=== PATIENT | male | born 1990 | race African-American/Black ===

== ENCOUNTER 2017-10-19 16:17 | Emergency (ER) | payer BC ==
[~2017-10-19] VITALS: Ht 175.3 cm; Wt 81.8 kg
[2017-10-19 16:42] VITALS: TEMP 37.1; Ht 175.3 cm; Wt 81.8 kg
[2017-10-19] MEDS ORDERED: OPTIRAY 320 IV PRN (17:00)
[2017-10-19] MEDS ORDERED: PATIENT'S ALLERGY INFO NEEDS ENTERED SCH (17:15)
[2017-10-19] MEDS ORDERED: LISI-461 PO (17:16)
[2017-10-19] MEDS ORDERED: TACR5CAP5 PO (17:16)
[2017-10-19] MEDS ORDERED: MYCO500T4 PO (17:16)
--- NOTE | 2017-10-19 18:09 | EMERGENCY ROOM VISIT NOTE ---
History First contact with patient: 16:51 Chief Complaint: BACK PAIN Stated Complaint: PAINFUL LOWER BACK PAIN, POSSIBLY ABSCESS History of Present Illness The patient is a 26 year old male who presents to the Emergency Room via private vehicle with complaints of "painful lower back, possibly abscess ankle. The patient states that for the past 2 days he has had pain in the perirectal region favoring the right side and posteriorly. He notes a history of 2. Rectal abscesses this past year alone. He denies any chest pain or shortness of breath. There are no fevers. Review of Systems A complete 6-point Review of Systems was discussed with the patient, with pertinent positives and negatives listed in the History of Present Illness. All remaining Review of Systems questions can be considered negative unless otherwise specified. Past Medical/Surgical History Kidney transplant and perirectal abscess. Family History Noncontributory Social History Smoking Status: Never Smoker Patient is from [facility], and is a traveling medical doctor md. Current/Historical Medications Scheduled Amoxicillin (Amoxicillin), 500 MG PO TID Lisinopril (Zestril), 10 MG PO DAILY Metronidazole (Flagyl), 500 MG PO TID Mycophenolate Mofetil (Cellcept), 250 MG PO BID Tacrolimus (Prograf), 5 MG PO BID Scheduled PRN Oxycodone Ir (Roxicodone Ir), 1-2 TAB PO Q4H PRN for Pain Physical Exam Vital Signs Date Time Temp Pulse Resp B/P (MAP) Pulse Ox O2 Delivery O2 Flow Rate FiO2 10/19/17 19:18 88 16 204/131 97 Room Air 10/19/17 18:39 72 16 172/129 98 Room Air 10/19/17 16:42 37.1 102 20 196/103 98 Room Air Physical Exam VITAL SIGNS - Vital signs and nursing notes were reviewed. Stable. Afebrile. Hypertensive. GENERAL -26-year-old male appearing his stated age who is in no acute distress. He is standing upon my entrance into the exam room, noting it is very painful to sit. Communicates well with provider and answers questions appropriately. SKIN - Without rashes. With patient prone, at the 2 o'clock position there is a 2 7 m x 2 cm slightly erythematous region that is borderline in the right anal verge. There is tenderness in this region and the rectal region. No drainage. No fluctuance. Medical Decision & Procedures ER Provider Diagnostic Interpretation: PELVIS NO IV/ORAL CONT (CT) CLINICAL HISTORY: Perianal abscess TECHNIQUE: Transaxial acquisition of multi axial reformatted images COMPARISON STUDY: None FINDINGS: All major intrapelvic structures are unremarkable. Bladder is midline. Right kidney is low-lying and/or pelvic in location. No evidence for collection or obstructive change within the soft tissue pelvis. Mild circumferential wall thickening of the anal verge somewhat more prominent on the right. A well-defined abscess or collection is not appreciated. Density characteristics of the subcutaneous fat and perirectal fascial planes is unremarkable. IMPRESSION: Mild circumferential wall thickening of the liver is slightly more prominent on the right. 2. No evidence for abscess or collection. 3. 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 The above report was generated using voice recognition software. It may contain grammatical, syntax or spelling errors. Electronically signed by: Ortega Del Rosario M.D. 10/19/2017 6:06 PM Dictated Date/Time: 10/19/2017 6:00 PM Laboratory Results 10/19/17 17:41 Red Blood Count 4.65, Mean Corpuscular Volume 87.5, Mean Corpuscular Hemoglobin 29.5, Mean Corpuscular Hemoglobin Concent 33.7, Mean Platelet Volume 10.5, Neutrophils (%) (Auto) 71.9, Lymphocytes (%) (Auto) 22.0, Monocytes (%) (Auto) 5.1, Eosinophils (%) (Auto) 0.4, Basophils (%) (Auto) 0.1, Neutrophils # (Auto) 8.14, Lymphocytes # (Auto) 2.49, Monocytes # (Auto) 0.58, Eosinophils # (Auto) 0.04, Basophils # (Auto) 0.01 10/19/17 17:41 Test 10/19/17 17:41 White Blood Count 11.32 K/uL (4.8-10.8) Red Blood Count 4.65 M/uL (4.7-6.1) Hemoglobin 13.7 g/dL (14.0-18.0) Hematocrit 40.7 % (42-52) Mean Corpuscular Volume 87.5 fL (80-100) Mean Corpuscular Hemoglobin 29.5 pg (25-34) Mean Corpuscular Hemoglobin Concent 33.7 g/dl (32-36) Platelet Count 285 K/uL (130-400) Mean Platelet Volume 10.5 fL (7.4-10.4) Neutrophils (%) (Auto) 71.9 % Lymphocytes (%) (Auto) 22.0 % Monocytes (%) (Auto) 5.1 % Eosinophils (%) (Auto) 0.4 % Basophils (%) (Auto) 0.1 % Neutrophils # (Auto) 8.14 K/uL (1.4-6.5) Lymphocytes # (Auto) 2.49 K/uL (1.2-3.4) Monocytes # (Auto) 0.58 K/uL (0.11-0.59) Eosinophils # (Auto) 0.04 K/uL (0-0.5) Basophils # (Auto) 0.01 K/uL (0-0.2) RDW Standard Deviation 39.7 fL (36.4-46.3) RDW Coefficient of Variation 12.5 % (11.5-14.5) Immature Granulocyte % (Auto) 0.5 % Immature Granulocyte # (Auto) 0.06 K/uL (0.00-0.02) Anion Gap 7.0 mmol/L (3-11) Est Creatinine Clear Calc Drug Dose 75.7 ml/min Estimated GFR () 74.6 Estimated GFR (Non- 64.4 BUN/Creatinine Ratio 12.0 (10-20) Calcium Level 9.6 mg/dl (8.5-10.1) Chemistry Specimen Hemolysis Medications Administered Medications (Trade) Dose Ordered Sig/Gen Route Start Time Stop Time Status Last Admin Dose Admin Miscellaneous Information (Patient'S Allergy Info Needs Entered) 1 ea Q15M N/A 10/19/17 17:15 10/19/17 17:37 DC 10/19/17 17:15 1 EA Oxycodone HCl (Roxicodone Immediate Rel 5MG Home Pack) 1 homepack UD STAT PO 10/19/17 19:19 10/19/17 19:21 DC 10/19/17 19:19 1 HOMEPACK Metronidazole (Flagyl Tab) 1,500 mg NOW STAT PO 10/19/17 19:19 10/19/17 19:21 DC 10/19/17 19:19 1,500 MG Amoxicillin (Amoxil 250MG Home Pack) 1 homepack UD STAT PO 10/19/17 19:19 10/19/17 19:21 DC 10/19/17 19:19 1 [facility] Medical Decision Patient was seen and evaluated as above. He presents to us today with rectal pain. There is evidence of perianal cellulitis, possibly developing an abscess. This is his third one of the year. Decision was made to obtain a CT scan and check baseline labs as he does have immunocompromised status secondary to his tacrolimus and CellCept that he takes for the kidney transplant. Leukocytosis at 11.32. Hemoglobin at 13.7. Metabolic panel does not reveal any evidence of emergent abnormality however there is a creatinine 1.48. He notes he is only 1.2. He is to follow with his doctor regarding this for recheck. CT scan reveals swelling but no abscess or collection. This is also clinically correlated. At this time I believe that he has cellulitis and swelling but no abscess or collection. He'll be placed upon Flagyl, and I was going to use Cipro however there is a large interaction between his suppressants. I was also going to use Augmentin however there is also an interaction the immunosuppressant and clavulanic acid. Decision was then made to use amoxicillin tablet the Flagyl. He'll be given a prescription. He was also given oxycodone for pain. He is to follow for reevaluation with general surgery as I did have our rifle case repairer's help to assist with this however he is to return with any new/concerning symptoms or if this worsens. I informed him that he may develop an abscess. The patient appears stable for outpatient management. He was educated upon management, educated upon worrisome symptoms which to return, had questions answered prior to discharge, and was discharged home in good condition. No red flag identified in the [place] drug monitoring system. In evaluation treatment this patient the following differential diagnoses were entertained: Abscess, cellulitis, among others. Impression Primary Impression: Perianal cellulitis Additional Impression: Anemia Departure Information Dispostion Home / Self-Care Condition GOOD Prescriptions Oxycodone Ir (Roxicodone Ir) 5 Mg Tab 1-2 TAB PO Q4H Y for Pain, #20 TAB For Initial Treatment Prov: Nguyễn Herman PA-C 10/19/17 Amoxicillin (Amoxicillin) 500 Mg Cap 500 MG PO TID for 10 Days, #30 TABS Prov: Nguyễn Herman PA-C 10/19/17 Metronidazole (Flagyl) 500 Mg Tab 500 MG PO TID for 10 Days, #30 TAB Prov: Batsheva Nguyễn Wells, ISAMAR 10/19/17 Referrals No Doctor, Assigned (PCP) Patient Instructions [facility] Additional Instructions You have been treated in the Emergency Department for a perirectal cellulitis ( no pocket of pus at this point). You have been prescribed Oxy IR to be used for pain control. This is a narcotic medication. You cannot drive or consume alcohol while on this medicine. This medicine should only be used for pain that cannot be controlled with over-the- counter pain medicines. I recommend taking a stool softener with this as this can Harden your stools and slow your stool motility. Flagyl 500 mg every 8 hours. No alcohol with this. Amoxicillin 500 mg every 8 hours. Please have your creatinine rechecked. Please call your family doctor. Please stay well hydrated. I do recommend following up with general surgery for evaluation of your perirectal cellulitis or return here in 48 hours. If this worsens please return as we discussed you're may develop an abscess. Problem Qualifiers
[2017-10-19 18:17] LABS: BASO % 0.1 %; BASO ABS # 0.01 K/uL (0-0.2); EOS % 0.4 %; EOS ABS # 0.04 K/uL (0-0.5); HEMATOCRIT 40.7 % (42-52); HEMOGLOBIN 13.7 g/dL (14.0-18.0); IG# 0.06 K/uL (0.00-0.02); LYMPH ABS # 2.49 K/uL (1.2-3.4); MEAN CELL VOLUME 87.5 fL (80-100); MEAN CORPUSCULAR HEMOGLOBIN 29.5 pg (25-34); MEAN CORPUSCULAR HGB CONC 33.7 g/dl (32-36); MEAN PLATELET VOLUME 10.5 fL (7.4-10.4); MONO % 5.1 %; MONO ABS # 0.58 K/uL (0.11-0.59); NEUT % 71.9 %; NEUT ABS # 8.14 K/uL (1.4-6.5); PLATELET COUNT 285 K/uL (130-400); RED CELL DISTRIBUTION WIDTH CV 12.5 % (11.5-14.5); RED CELL DISTRIBUTION WIDTH SD 39.7 fL (36.4-46.3); WHITE BLOOD COUNT 11.32 K/uL (4.8-10.8)
[2017-10-19 18:37] LABS: CALCIUM 9.6 mg/dl (8.5-10.1); CREATININE 1.48 mg/dl (0.60-1.40); POTASSIUM 3.8 mmol/L (3.5-5.1)
[2017-10-19] MEDS ORDERED: OXYC1TAB3 PO (19:17)
[2017-10-19] MEDS ORDERED: METR-163 PO (19:17)
[2017-10-19] MEDS ORDERED: AMX500 PO (19:17)
[2017-10-19 19:18] VITALS: BP 204/131; PULSE 88; O2SAT 97
[2017-10-19] MEDS ORDERED: METRONIDAZOLE 250 MG TAB PO STA (19:19)
[2017-10-19] MEDS ORDERED: AMOXICILLIN HOME PACK 250 MG/TAB PO STA (19:19)
[2017-10-19] MEDS ORDERED: OXYCODONE IR HOME PACK PO STA (19:19)
[2017-10-19] MEDS ORDERED: EMPTY 8 DRAM VIAL ONE (19:25)
== END 2017-10-19 19:36 | disposition home or self-care (01) ==
LOC: C.EDB 16:18 → C.EDD 19:36
DX: K61.2 Anorectal abscess (principal); D64.9 Anemia, unspecified; Z94.0 Kidney transplant status; Z79.899 Other long term (current) drug therapy

== ENCOUNTER 2017-10-20 08:44 | Emergency (ER) | payer BC ==
[~2017-10-20] VITALS: Ht 175.3 cm; Wt 80.5 kg
[~2017-10-20 08:44] MED LIST: AMX500 PO; LISI-461 PO; METR-163 PO; MYCO500T4 PO; OXYC-90 PO; TACR5CAP5 PO
[2017-10-20 08:47] VITALS: PULSE 113; TEMP 36.7; O2SAT 99; Ht 175.3 cm; Wt 80.5 kg
[2017-10-20] MEDS ORDERED: KETOROLAC TROMETHAMINE 30 MG/ML VIAL IV STA (09:19)
[2017-10-20] MEDS ORDERED: ONDANSETRON INJ 2 MG/ML 2 ML VIAL IV STA (09:19)
--- NOTE | 2017-10-20 10:03 | DIAGNOSTIC IMAGING REPORT ---
CT PELVIS NO IV/ORAL CONT (CT) CT DOSE: 224.64 mGy.cm CLINICAL HISTORY: Perianal abscess. TECHNIQUE: The study is performed in a noncontrast fashion which significantly limits the study. A dose lowering technique was utilized adhering to the principles of ALARA. COMPARISON STUDY: 10/19/2017 FINDINGS: There is a partially visualized right iliac fossa transplant kidney. There is a parapelvic cyst versus hydronephrosis. There is no pathologic adenopathy. There is no ascites. There is asymmetric soft tissue in the region the right gluteal fold, possibly representing the clinically reported abscess. This measures 2 cm. The bones appear slightly sclerotic, likely secondary to renal osteodystrophy. IMPRESSION: 1. Right iliac fossa transplant kidney. Partially visualized parapelvic cyst versus hydronephrosis. 2. 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 Asymmetric soft tissue in the region the right gluteal fold. Given the clinical history, this could represent a perianal gluteal fold phlegmon/abscess. CT evaluation is limited given the absence of intravenous contrast Electronically signed by: Galo Turner M.D. 10/20/2017 10:02 AM Dictated Date/Time: 10/20/2017 9:49 AM
[2017-10-20 10:25] LABS: BASO % 0.2 %; BASO ABS # 0.02 K/uL (0-0.2); EOS % 0.2 %; EOS ABS # 0.03 K/uL (0-0.5); HEMATOCRIT 42.6 % (42-52); IG# 0.03 K/uL (0.00-0.02); LYMPH % 14.6 %; MEAN CELL VOLUME 88.2 fL (80-100); MEAN CORPUSCULAR HGB CONC 32.9 g/dl (32-36); MEAN PLATELET VOLUME 10.3 fL (7.4-10.4); MONO % 5.4 %; MONO ABS # 0.71 K/uL (0.11-0.59); NEUT % 79.4 %; NEUT ABS # 10.35 K/uL (1.4-6.5); PLATELET COUNT 276 K/uL (130-400); RED CELL DISTRIBUTION WIDTH CV 12.6 % (11.5-14.5); RED CELL DISTRIBUTION WIDTH SD 40.3 fL (36.4-46.3); WHITE BLOOD COUNT 13.04 K/uL (4.8-10.8)
[2017-10-20 10:41] LABS: CALCIUM 10.4 mg/dl (8.5-10.1); CREATININE 1.71 mg/dl (0.60-1.40); POTASSIUM 3.7 mmol/L (3.5-5.1)
[2017-10-20 10:51] VITALS: BP 136/87
--- NOTE | 2017-10-20 14:48 | EMERGENCY ROOM VISIT NOTE ---
ED Visit Note First contact with patient: 09:06 Chief Complaint: Lower back pain. History of Present Illness: Mr. Rodrigez is a 26-year-old black male who ambulates into the ED complaining of pain in the coccyx area. Historically patient reports he is status post kidney transplant and has had a previous drainage of a perianal abscess. Patient was seen in the emergency department last night and was diagnosed with a perianal abscess. His CT showed mild circumferential wall thickening of the area which is slightly more prominent on the right; no abscess or collection. He was treated with pain medication and antibiotic therapy and encouraged to follow-up with general surgery. Patient reports he woke this morning with severe pain in his coccyx area. He describes his pain as a sharp and throbbing sensation. He rates his discomfort 10/10. His pain is nonradiating. His pain worsens with palpation of the area, sitting on his buttocks and ambulation. He reports he has been using his prescribed OxyIR without relief of his discomfort but last night before bed he took ibuprofen PM and had moderately severe this discomfort. Associated with his pain he reports he has been having hot flashes, but no chills, sweats or fevers, and he has been nauseated and have 1 episode of vomiting, painful bowel movements. Additionally he denies abdominal pain, diarrhea, constipation, rectal bleeding, black/tarry stools, urinary symptoms, hematuria, genital paresthesias, drainage , lower extremity weakness/numbness/tingling. Review of Systems: As noted above in history of present illness. All body systems were reviewed and found to be negative as noted above. Past Medical History: As previously noted Current Medications: Medications Dose Route/Sig Max Daily Dose Days Date Category Dose Instructions Roxicodone Ir (Oxycodone HCl) 5 Mg Tab 1-2 Tab PO Q4H PRN 10/19/17 Rx For Initial Treatment Amoxicillin 500 Mg Cap 500 Mg PO TID 10 10/19/17 Rx Flagyl (Metronidazole) 500 Mg Tab 500 Mg PO TID 10 10/19/17 Rx Zestril (Lisinopril) 10 Mg Tab 10 Mg PO DAILY 10/19/17 Reported Cellcept (Mycophenolate Mofetil) 500 Mg Tab 250 Mg PO BID 10/19/17 Reported Prograf (Tacrolimus) 5 Mg Cap 5 Mg PO BID 10/19/17 Reported Allergies to Medications: Patient denies. Social History: Patient is currently employed; he feels safe in his home environment; he denies tobacco use. Physical Examination: Vital Signs: Date Time Temp Pulse Resp B/P (MAP) Pulse Ox O2 Delivery O2 Flow Rate FiO2 10/20/17 10:51 136/87 10/20/17 08:47 36.7 113 18 177/93 99 Room Air GENERAL: 26-year-old male in mild to moderate distress due to pain, nontoxic- appearing, afebrile and hemodynamically stable. NEUROLOGICAL: Awake, alert and oriented to person, place and time. Answering questions appropriately and following commands. Normal gait. Good hand eye coordination. No focal motor or sensory deficits. SKIN: Warm, dry and pink. Gluteal Region: In the right upper area of the gluteal fold patient has a 2 x 3 cm indurated area. This area is not fluctuant and there is no pointing. Previously it was described as erythematous and it is not currently erythematous. The skin does not appear cellulitic and there is no lymphangitis. There is no drainage from the wound. HEENT: Atraumatic and normocephalic. BACK: No tenderness over the bony spine. No CVA tenderness. THORAX: Lungs sounds are clear to auscultation and equal bilaterally with symmetrical chest wall. ABDOMEN: Flat, soft and nontender. Positive bowel sounds in all quadrants. No guarding, rigidity or organomegaly. EXTREMITIES: Moves all extremities well on command and with purpose. All distal neurovascular statuses are intact and equal bilaterally. ED Course: Patient is assessed as noted above. Patient's medication list was reviewed. Laboratory Testing: Test 10/20/17 10:05 Range/Units White Blood Count 13.04 4.8-10.8 K/uL Red Blood Count 4.83 4.7-6.1 M/uL Hemoglobin 14.0 14.0-18.0 g/dL Hematocrit 42.6 42-52 % Mean Corpuscular Volume 88.2 80-100 fL Mean Corpuscular Hemoglobin 29.0 25-34 pg Mean Corpuscular Hemoglobin Concent 32.9 32-36 g/dl Platelet Count 276 130-400 K/uL Mean Platelet Volume 10.3 7.4-10.4 fL Neutrophils (%) (Auto) 79.4 % Lymphocytes (%) (Auto) 14.6 % Monocytes (%) (Auto) 5.4 % Eosinophils (%) (Auto) 0.2 % Basophils (%) (Auto) 0.2 % Neutrophils # (Auto) 10.35 1.4-6.5 K/uL Lymphocytes # (Auto) 1.90 1.2-3.4 K/uL Monocytes # (Auto) 0.71 0.11-0.59 K/uL Eosinophils # (Auto) 0.03 0-0.5 K/uL Basophils # (Auto) 0.02 0-0.2 K/uL RDW Standard Deviation 40.3 36.4-46.3 fL RDW Coefficient of Variation 12.6 11.5-14.5 % Immature Granulocyte % (Auto) 0.2 % Immature Granulocyte # (Auto) 0.03 0.00-0.02 K/uL Sodium Level 137 136-145 mmol/L Potassium Level 3.7 3.5-5.1 mmol/L Chloride Level 106 98-107 mmol/L Carbon Dioxide Level 24 21-32 mmol/L Anion Gap 7.0 3-11 mmol/L Blood Urea Nitrogen 19 7-18 mg/dl Creatinine 1.71 0.60-1.40 mg/dl Est Creatinine Clear Calc Drug Dose 65.5 ml/min Estimated GFR () 62.7 Estimated GFR (Non- 54.1 BUN/Creatinine Ratio 10.9 10-20 Random Glucose 110 70-99 mg/dl Calcium Level 10.4 8.5-10.1 mg/dl Microbiology Results 10/20/17 Blood Culture: Pending Noncontrast Pelvic CT: Showed F symmetry to the soft tissues in the region of the right upper gluteal fold; when I queried the radiologist he did not feel this was any different from previous CT. It is also noted that there is suspected renal osteodystrophy. Patient was given 30 mg of Toradol IV and 4 mg of Zofran IV. Patient was reassessed multiple times during his stay in the emergency department. Patient's case was reviewed with Dr. Groves; we agreed on diagnostic approach, treatment, disposition and plan. Case management came and informed me that the general surgeon that was dungeon master last night reviewed the patient's laboratory testing and CT scan and felt he needed to see his supervisor particleboard her family doctor for follow-up. Case management did contact the patient's supervisor particleboard and he was out of town till next but his neurological team will be making a follow-up appointment for the patient. I had a lengthy conversation with the patient about a possible and I&D procedure and informed him I did not feel was appropriate this time because his abscess was not fluctuant and I did not feel it would assist in his treatment. Patient was educated about today's findings and instructed on his treatment plan ; he verbalizes understanding and agreement with this plan. Clinical Impression: Early pilonidal cyst. Disposition: Patient discharged home in stable condition; prior to departure he was reassessed and subjectively reported he was feeling much better and rated his discomfort 2/10. Plan: Patient was encouraged to continue his current medications as prescribed. Patient is encouraged to alternate ibuprofen with his OxyIR for pain relief every 3 hours. Patient was informed that his supervisor particleboard's office will be contacting him for follow-up care and treatment. I encourage the patient return back if he was still in severe pain and 36-48 hours, he started running fevers or did not hear from his supervisor particleboard for possible I&D procedure.
== END 2017-10-20 11:19 | disposition home or self-care (01) ==
LOC: C.EDB 08:45
DX: L05.91 Pilonidal cyst without abscess (principal)